=== PATIENT | male | born 1980 | race Caucasian/White ===

== ENCOUNTER 2020-03-03 01:54 | Emergency (ER) | payer BC | END 2020-03-03 06:42 | disposition left against medical advice (07) | LOC: ER 01:54 | DX: Z53.21 Procedure and treatment not carried out due to patient leaving prior to being seen by health care provider (principal) ==

== ENCOUNTER 2020-03-06 03:01 | Inpatient (IN) | payer BC, OTHER ==
--- NOTE | 2020-03-06 04:11 | ER Document Report ---
ED Medical Screen (RME) - General Chief Complaint: Hand Swelling Stated Complaint: RIGHT HAND SWELLING Time Seen by Provider: 03/06/20 03:58 Primary Care Provider: BLAS,DINA [Primary Care Provider] - Follow up as needed Notes: 39-year-old male with chief complaint of right hand pain and swelling at the fourth and fifth digits and across the palm. He states that he struck his palm/hand hard down on a counter approximately 1 week ago, he did started having subsequent swelling and redness to the area which spread across the hand, he was seen at [facility] 3 days ago and started on Bactrim, he does state the red ness and pain has significantly improved but he is starting to get of large blister between the fourth and fifth fingers which has increased in size making him concerned. He denies fever/chills. He denies any open wounds. He denies diabetes. He denies any medical history other than IV drug abuse (reportedly clean for over a year). - Related Data Allergies/Adverse Reactions: No Known Allergies Allergy (Unverified 02/22/11 12:55) Past Medical History - Past Medical History Cardiac Medical History: Reports: Hx Hypertension Denies: Hx Coronary Artery Disease, Hx Heart Attack Pulmonary Medical History: Denies: Hx Asthma, Hx Bronchitis, Hx COPD, Hx Pneumonia Neurological Medical History: Denies: Hx Cerebrovascular Accident, Hx Seizures Musculoskeltal Medical History: Denies Hx Arthritis Past Surgical History: Denies: Hx Pacemaker - Immunizations Hx Diphtheria, Pertussis, Tetanus Vaccination: Yes Physical Exam - Vital signs Vitals: Temp Pulse Resp BP Pulse Ox 98.3 F 70 14 112/68 97 03/06/20 03:13 03/06/20 03:13 03/06/20 03:13 03/06/20 03:13 03/06/20 03:13 - Extremities General upper extremity: Other - Extensive hematoma noted between the webbing and up to the PIP of the right fifth digit and including the base of the fourth digit with swelling onto the hand. Able to move the DIP only of the fifth digit. Surrounding erythema at the base of the hematoma noted of the palm with some swelling. Capillary refill and sensation intact. Wrist exam is unremarkable. Course - Re-evaluation Re-evalutation: I have greeted and performed a rapid initial assessment of this patient. A comprehensive ED assessment and evaluation of the patient, analysis of test results and completion of the medical decision making process will be conducted by additional ED providers. - Vital Signs Vital signs: Temp Pulse Resp BP Pulse Ox 98.3 F 70 14 112/68 97 03/06/20 03:13 03/06/20 03:13 03/06/20 03:13 03/06/20 03:13 03/06/20 03:13 Doctor's Discharge - Discharge Referrals: LOCALMD,NO [Primary Care Provider] - Follow up as needed
[2020-03-06 05:10] LABS: ABSOLUTE LYMPHOCYTES (AUTO) 2.5 10^3/uL (0.5-4.7); ABSOLUTE MONOCYTES (AUTO) 1.2 10^3/uL (0.1-1.4); ABSOLUTE NEUT (AUTO) 9.4 10^3/uL (1.7-8.2); BASOPHILS % (AUTO) 0.3 % (0-2); EOSINOPHILS % (AUTO) 0.4 % (0-6); HEMATOCRIT 38.6 % (37.9-51.0); HEMOGLOBIN 12.9 g/dL (13.5-17.0); LYMPHOCYTES % (AUTO) 18.8 % (13-45); MEAN CORPUSCULAR HEMOGLOBIN 28.7 pg (27.0-33.4); MEAN CORPUSCULAR HGB CONC 33.5 g/dL (32.0-36.0); MEAN CORPUSCULAR VOLUME 86 fl (80-97); MONOCYTES % (AUTO) 9.2 % (3-13); PLATELET COUNT 278 10^3/uL (150-450); RED BLOOD COUNT 4.51 10^6/uL (4.35-5.55); RED CELL DISTRIBUTION WIDTH 13.4 % (11.5-14.0); SEGMENTED NEUTROPHILS % (AUTO) 71.3 % (42-78); TOTAL CELLS COUNTED % (AUTO) 100 %; WHITE BLOOD COUNT 13.2 10^3/uL (4.0-10.5)
[2020-03-06 05:27] LABS: ANION GAP 10 (5-19); BLOOD UREA NITROGEN 19 mg/dL (7-20); CALCIUM 9.4 mg/dL (8.4-10.2); CARBON DIOXIDE 25 mmol/L (22-30); CHLORIDE 104 mmol/L (98-107); GLUCOSE 141 mg/dL (75-110); POTASSIUM 3.7 mmol/L (3.6-5.0)
--- NOTE | 2020-03-06 05:39 | RADIOLOGY REPORT (SQ) ---
EXAM DESCRIPTION: XR HAND 3 OR MORE VIEWS COMPLETED DATE/TME: 03/06/2020 04:46 CLINICAL HISTORY: 39 years, Male, right hand swelling, injury COMPARISON: None. FINDINGS: 3 views of the right hand. No acute fracture or dislocation. Normal osseous mineralization. Dorsal soft tissue edema. No radiopaque foreign body. IMPRESSION: 1. No acute fracture identified. copyright 2010 [employer]- All Rights Reserved
[2020-03-06] MEDS ORDERED: ERTAPENEM SODIUM INJ 1 GM VIAL IV ONE (11:10)
[2020-03-06] MEDS ORDERED: ONDANSETRON HCL INJ/PF 4 MG/2 ML SDV IV ONE (11:10)
[2020-03-06] MEDS ORDERED: MORPHINE SULFATE 10 MG/ML INJ IV ONE (11:10)
[2020-03-06] MEDS ORDERED: NORMAL SALINE 1000 ML 1,000 ML IV ONE (11:32)
--- NOTE | 2020-03-06 11:59 | ER Document Report ---
Entered by JESSICA SARKAR SCRIBE 03/06/20 1016 Acting as scribe for:DANIELLA CABRAL MD ED General - General Chief Complaint: Hand Swelling Stated Complaint: RIGHT HAND SWELLING Time Seen by Provider: 03/06/20 03:58 Mode of Arrival: Ambulatory Information source: Patient Notes: This 39 year old male patient presents to the emergency department today with concerns of right dorsal hand swelling, pain, and discoloration. Patient first noticed swelling to the right dorsal hand at the base of the fifth finger on February 24 and it increased since onset so he went to [facility] on March 01 and he was prescribed ibuprofen, Bactrim, and prednisone. On March 03 he banged his hand on the corner of a counter at work and the swelling, pain, and discoloration has gotten much worse since he hit his hand. He came to the emergency department on the night of February but he left without being seen. His last meal was yesterday. TRAVEL OUTSIDE OF THE [place] IN LAST 30 DAYS: No - Related Data Allergies/Adverse Reactions: No Known Allergies Allergy (Unverified 02/22/11 12:55) Past Medical History - General Information source: Patient - Social History Smoking Status: Current Every Day Smoker Cigarette use (# per day): Yes - 1 PPD Chew tobacco use (# tins/day): No Smoking Education Provided: No Frequency of alcohol use: None Drug Abuse: Other - Former IV drug abuser, states he has been clean for 1 year. 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 Family History: Reviewed & Not Pertinent Past Surgical History: Reports: Hx Inguinal Hernia - Right and left inguinal hernia repair, Hx Umbilical Hernia - Immunizations Hx Diphtheria, Pertussis, Tetanus Vaccination: Yes Review of Systems - Review of Systems Constitutional: No symptoms reported EENT: No symptoms reported Cardiovascular: No symptoms reported Respiratory: No symptoms reported Gastrointestinal: No symptoms reported Genitourinary: No symptoms reported Male Genitourinary: No symptoms reported Musculoskeletal: See HPI, Joint pain Skin: See HPI Hematologic/Lymphatic: No symptoms reported Neurological/Psychological: No symptoms reported -: Yes All other systems reviewed and negative Physical Exam - Vital signs Vitals: Temp Pulse Resp BP Pulse Ox 98.3 F 70 14 112/68 97 03/06/20 03:13 03/06/20 03:13 03/06/20 03:13 03/06/20 03:13 03/06/20 03:13 - Notes Notes: Physical Exam: General: Alert, appears well. HEENT: Normocephalic. Atraumatic. PERRL. Extraocular movements intact. Oropharynx clear. Neck: Supple. Non-tender. Respiratory: No respiratory distress. Clear and equal breath sounds bilaterally. Cardiovascular: Regular rate and rhythm. Abdominal: Normal Inspection. Non-tender. No distension. Normal Bowel Sounds. Back: No gross abnormalities. Extremities: Moves all four extremities. Upper extremities: Patient is fully closed, including a heavy coat. Due to the amount of pus that came out of his hand, we just kept the sleeve pulled up during the procedure. He was undressed later while the hand was bandaged to prevent contamination of his clothing. Dr. Choe did note what he thought were track gary in the antecubital fossa region. Lower extremities: Patient is fully clothed at this time, he has no difficulty ambulating. Neurological: Normal cognition. AAOx4. Normal speech. Psychological: Normal affect. Normal Mood. - Extremities General upper extremity: Other - Right hand has a dark bluish colored blister over the dorsal fifth MCP joint region. It extends down close to the PIP joint, and extends proximally about 1 cm. It extends in the radial direction almost to the fourth MCP joint region. There is erythema swelling and tenderness at the radial leading edge of the blister region. Blister also extends around the ulnar aspect of the fifth finger at the MCP joint region. Course - Re-evaluation Re-evalutation: 03/06/20 11:26 PROCEDURE: The right hand skin was initially cleaned with alcohol wipes and the blister was punctured with an 18-gauge needle. Reddish-brown pus sprayed out of the punctured area almost 3 feet across the room. A suture kit was requested and used to debride the skin from the dorsal aspect of the hand. Several mL of pus ran out of the wound area onto the surgical towel. Gentle pressure was applied which showed pus coming out of the dorsal finger at the MCP joint region, and the extensor tendon was visible. The pus was sent to the lab for culture and Gram stain. The wound was irrigated with normal saline, and a saline soaked dressing was applied. Dr. Choe the orthopedic surgeon on-call was notified and he will come by and see the patient. - Vital Signs Vital signs: Temp Pulse Resp BP Pulse Ox 98.2 F 74 14 120/69 100 03/06/20 13:55 03/06/20 13:55 03/06/20 13:55 03/06/20 13:55 03/06/20 13:55 - Laboratory Result Diagrams: 03/06/20 04:54 03/06/20 04:54 Laboratory results interpreted by me: 03/06/20 03/06/20 04:54 04:54 WBC 13.2 H Hgb 12.9 L Absolute Neuts (auto) 9.4 H Glucose 141 H - Diagnostic Test Radiology reviewed: Image reviewed, Reports reviewed - X-ray of the right hand is unremarkable - Consults Dr. Choe Time consulted: 11:11 Consulted provider: will come to ER Discharge - Discharge Clinical Impression: Abscess of hand including fingers Qualifiers: Laterality: right Qualified Code(s): L02.511 - Cutaneous abscess of right hand Condition: Stable Disposition: ADMITTED INPATIENT Admitting Provider: Dr. Choe Unit Admitted: OR I personally performed the services described in the documentation, reviewed and edited the documentation which was dictated to the scribe in my presence, and it accurately records my words and actions.
[2020-03-06] MEDS ORDERED: FENTANYL CITRATE INJ/PF 100 MCG/2 ML AMPUL ONE ×2 (12:46→13:22)
[2020-03-06] MEDS ORDERED: MIDAZOLAM 2 MG/2 ML INJ ONE ×2 (12:46→13:23)
[2020-03-06] MEDS ORDERED: PROPOFOL INJ 200 MG/20 ML VIAL IV ONE ×2 (12:46→13:23)
[2020-03-06] MEDS ORDERED: LIDOCAINE 1%/EPINEPHRINE INJ 20 ML VIAL ONE (13:07)
[2020-03-06] MEDS ORDERED: BUPIVACAINE HCL 0.5 % INJ/PF 30 ML SDV ONE (13:07)
[2020-03-06] MEDS ORDERED: DEXAMETHASONE SOD PHOSPHATE INJ 4 MG/1 ML VIAL ONE (13:23)
[2020-03-06] MEDS ORDERED: ONDANSETRON HCL INJ/PF 4 MG/2 ML SDV ONE (13:23)
[2020-03-06] MEDS ORDERED: KETAMINE HCL INJ 500 MG/10 ML VIAL ONE (13:28)
[2020-03-06] MEDS ORDERED: PROMETHAZINE HCL INJ 25 MG/1 ML VIAL IV PRN ×2 (14:07)
[2020-03-06] MEDS ORDERED: MEPERIDINE HCL/PF INJ 25 MG/1 ML DISP.SYRIN IV PRN (14:07)
[2020-03-06] MEDS ORDERED: FENTANYL CITRATE INJ/PF 100 MCG/2 ML AMPUL IV PRN ×3 (14:07)
[2020-03-06] MEDS ORDERED: DIPHENHYDRAMINE HCL 50 MG/ML VIAL IV PRN (14:07)
[2020-03-06] MEDS ORDERED: MAG HYDROX/AL HYDROX/SIMETH SUSP 30 ML UDCUP PO PRN (15:18)
[2020-03-06] MEDS ORDERED: ACETAMINOPHEN 325 MG TABLET PO PRN (15:18)
[2020-03-06] MEDS ORDERED: ONDANSETRON 4 MG TAB.RAPDIS PO PRN (15:18)
[2020-03-06] MEDS ORDERED: MORPHINE SULFATE 10 MG/ML INJ ONE (15:21)
[2020-03-06] MEDS: MORPHINE SULFATE 10 MG/ML INJ IV PRN ×2 (15:23→15:29)
--- NOTE | 2020-03-06 15:30 | PDOC H&P ---
History of Present Illness Admission Date/PCP: 03/06/20 12:33 IN CLINIC History of Present Illness: MELY LITTLEJOHN is a 39 year old male who presents to the emergency department with dorsal right hand swelling, pain, discoloration that has been progressive over the last week. Patient reports that he went to [facility] on March 01 and was prescribed a combination of high-dose ibuprofen, Bactrim, as well as prednisone and ultimately he continued to progress with worse pain and swelling since that time. He is not aware of any inciting event such as a puncture wound or associated abrasion. He feels that this came out of nowhere but ultimately became much worse on March 03 when he banged his hand on the counter at work with considerable pain discoloration and swelling. He has had some malaise in the meantime with mild fever symptoms. He denies numbness to the fingertip. He denies injecting IV drugs in the hand. He does have track gray in his antecubital fossa though he reports to me today that he has been off of all IV drugs for a year. Pain is described as burning aching pressure/8 out of 10, worse with any activity, improved with rest and pain medication, nonradiating. Past Medical History Cardiac Medical History: Reports: Hypertension Denies: Coronary Artery Disease, Myocardial Infarction Pulmonary Medical History: Denies: Asthma, Bronchitis, Chronic Obstructive Pulmonary Disease (COPD), Pneumonia Neurological Medical History: Denies: Seizures Musculoskeltal Medical History: Denies: Arthritis Hematology: Denies: Anemia Past Surgical History Past Surgical History: Denies: Pacemaker Social History Smoking Status: Current Every Day Smoker - Advance Directive Resuscitation Status: Full Code Family History Family History: Reviewed & Not Pertinent Parental Family History Reviewed: No Children Family History Reviewed: NA Sibling(s) Family History Reviewed.: NA Medication/Allergy Home Medications: Chantix PO BID 02/22/11 Lisinopril 10 mg PO DAILY 02/22/11 Simvastatin 40 mg PO DAILY 02/22/11 Lovaza 1 gm Capsule 2 tab PO BID 02/28/11 Percocet 5-325 mg Tablet 1 tab PO Q4HP PRN 02/28/11 Phenergan 25 mg Tablet 1 tab PO Q4HP PRN 02/28/11 Allergies/Adverse Reactions: No Known Allergies Allergy (Unverified 02/22/11 12:55) Review of Systems Review of Systems: Constitutional: ABSENT: anorexia, chills, night sweats Cardiovascular: ABSENT: chest pain Respiratory: ABSENT: dyspnea Gastrointestinal: ABSENT: vomiting Genitourinary: ABSENT: dysuria Integumentary: ABSENT: rash Neurological: ABSENT: confusion, memory loss, numbness Psychiatric: ABSENT: hallucinations Hematologic/Lymphatic: ABSENT: easy bleeding Physical Exam Vital Signs: Temp Pulse Resp BP Pulse Ox 98.2 F 74 14 120/69 100 03/06/20 13:55 03/06/20 13:55 03/06/20 13:55 03/06/20 13:55 03/06/20 13:55 Intake & Output 03/05/20 03/06/20 03/07/20 06:59 06:59 06:59 Intake Total 1600 Output Total 5 Balance 1595 Weight 85.4 kg Physical Exam: General appearance: PRESENT: no acute distress, cooperative, well-nourished Head exam: PRESENT: atraumatic, normocephalic Eye exam: PRESENT: EOMI Ear exam: PRESENT: normal external ear exam Mouth exam: PRESENT: neck supple Neck exam: ABSENT: tracheal deviation Respiratory exam: PRESENT: symmetrical, unlabored. ABSENT: accessory muscle use, wheezes Pulses: PRESENT: normal radial pulses, normal dorsalis pedis pulse Vascular exam: PRESENT: normal capillary refill GI/Abdominal exam: ABSENT: distended, firm Extremities exam: PRESENT: full ROM of bilateral shoulders, elbows wrists, knees, hips and ankles without pain Musculoskeletal exam: PRESENT: full ROM, normal inspection of all 4 extremities aside from that noted below. Neurological exam: PRESENT: alert, awake, oriented to person, oriented to place, oriented to time Psychiatric exam: PRESENT: appropriate affect. ABSENT: agitated Focused psych exam: ABSENT: catatonic Skin exam: PRESENT: intact. ABSENT: dry All as above aside from that noted in the HPI and the following: Right upper extremity sensation grossly intact to radial median and ulnar nerve. upper extremity motor function grossly intact to radian median ulnar nerve AIN and PIN Pulses 2+, capillary refill less than 2 seconds substantial swelling over the fifth MCP of the right hand with swelling both dorsally and volarly. The patient has intact sensation to the fingertip and capillary refill less than 2 seconds. There is a volar wound that is ultimately skin attenuation after long-term pressure from the abscess at the level of the MCP crease with a large opening approximately 2 cm. This goes into the crease between the fourth and fifth digit. There is visible flexor tendon. Gross purulence is appreciated. Results Laboratory Results: 03/06/20 04:54 03/06/20 04:54 03/06/20 03/06/20 04:54 04:54 WBC 13.2 H RBC 4.51 Hgb 12.9 L Hct 38.6 MCV 86 MCH 28.7 MCHC 33.5 RDW 13.4 Plt Count 278 Seg Neutrophils % 71.3 Sodium 138.8 Potassium 3.7 Chloride 104 Carbon Dioxide 25 Anion Gap 10 BUN 19 Creatinine 0.73 Est GFR ( Amer) > 60 Glucose 141 H Calcium 9.4 Impressions: Hand X-Ray 03/06/20 04:10 IMPRESSION: 1. No acute fracture identified. copyright 2010 [employer]- All Rights Reserved Assessment & Plan - Diagnosis (1) Abscess of hand including fingers Qualifiers: Laterality: right Qualified Code(s): L02.511 - Cutaneous abscess of right hand Is this a current diagnosis for this admission?: Yes Plan: The patient was seen in the emergency department evaluated and determined to need acute washout Will consult infectious disease for ongoing antibiotic treatment We will perform a washout in the OR followed by wound care Dilute Dakin soaks twice daily, 20 minutes at a time Follow cultures (2) IV drug abuse Is this a current diagnosis for this admission?: Yes Plan: Case management has been consulted Though the patient denies any recent use he does appear to have track gray in his right antecubital fossa. - Time Anticipated Discharge Disposition: Home, Self Care Anticipated Discharge Timeframe: within 72 hours
--- NOTE | 2020-03-06 15:35 | Operative Report ---
Operative Report DATE OF SURGERY: 03/06/20 PREOPERATIVE DIAGNOSIS: Right hand abscess POSTOPERATIVE DIAGNOSIS: Right hand abscess OPERATION: Right hand abscess incision and debridement SURGEON: LIZY BELL JR ANESTHESIA: Moderate Sedation TISSUE REMOVED OR ALTERED: Cultures taken COMPLICATIONS: None ESTIMATED BLOOD LOSS: 50 cc PROCEDURE: The patient was brought to the operating suite and laid supine on the operating table he was placed under moderate sedation. The right upper extremities and prepped draped in standard sterile fashion. He had just received antibiotics in the emergency department preoperatively. An appropriate timeout was performed. The tissue about the wound was anesthetized with local anesthetic. The tourniquet was inflated to 250 mmHg. After appropriate anesthesia an incision was made to extend the wound along the ulnar border of the hand. Culture swabs were used and sent to microbiology. I then explored the contents of the wound and gently removed any necrotic or infectious appearing tissue. I explored the boundaries of the wound for any potential pockets of purulence and attempted to express any purulence possible. After thorough evaluation and removal of any nonviable tissue, we copiously irrigated the wound with dilute Betadine solution. The abscess had ultimately formed a subcutaneous blister volarly at the level of the MCP joint and much of the tissue at the crease of the MCP was necrotic and once removed there was approximately a 2 cm x 1 cm void. I was able to approximate this with 3-0 nylon. A portion of the wound was left partially open in between the fourth and fifth digit. Sterile dressing was then placed. The tourniquet was deflated. The patient was then awakened from anesthesia and transferred to PACU in stable condition.
[2020-03-06 16:45] LABS: ABSOLUTE MONOCYTES (AUTO) 0.2 10^3/uL (0.1-1.4); ABSOLUTE NEUT (AUTO) 7.6 10^3/uL (1.7-8.2); HEMATOCRIT 36.9 % (37.9-51.0); HEMOGLOBIN 12.5 g/dL (13.5-17.0); LYMPHOCYTES % (AUTO) 11.4 % (13-45); MEAN CORPUSCULAR HEMOGLOBIN 29.5 pg (27.0-33.4); MEAN CORPUSCULAR HGB CONC 33.9 g/dL (32.0-36.0); MEAN CORPUSCULAR VOLUME 87 fl (80-97); MONOCYTES % (AUTO) 2.7 % (3-13); PLATELET COUNT 244 10^3/uL (150-450); RED BLOOD COUNT 4.25 10^6/uL (4.35-5.55); RED CELL DISTRIBUTION WIDTH 13.8 % (11.5-14.0); SEGMENTED NEUTROPHILS % (AUTO) 85.9 % (42-78); TOTAL CELLS COUNTED % (AUTO) 100 %; WHITE BLOOD COUNT 8.9 10^3/uL (4.0-10.5)
[2020-03-06 17:01] LABS: ANION GAP 7 (5-19); BLOOD UREA NITROGEN 15 mg/dL (7-20); CALCIUM 8.8 mg/dL (8.4-10.2); CARBON DIOXIDE 24 mmol/L (22-30); CHLORIDE 107 mmol/L (98-107); GLUCOSE 124 mg/dL (75-110); POTASSIUM 4.6 mmol/L (3.6-5.0)
[2020-03-06] MEDS ORDERED: SODIUM HYPOCHLORITE 0.25% SOLN 473 ML BOTTLE TP SCH (18:00)
[2020-03-06] MEDS: OXYCODONE-ACETAMINOPHEN 5-325 MG TABLET PO PRN (20:25)
[2020-03-07] MEDS: OXYCODONE-ACETAMINOPHEN 5-325 MG TABLET PO PRN ×3 (01:08→20:34)
[2020-03-07] MEDS: PANTOPRAZOLE SODIUM 20 MG TABLET.DR PO SCH (05:40)
[2020-03-07] MEDS ORDERED: INFLUENZA QUAD (6MOS+) 2020-21 VAC 0.5 ML SYR IM ONE (08:00)
--- NOTE | 2020-03-07 08:39 | PDOC PROGRESS REPORT ---
Subjective Date:: 03/07/20 Subjective:: Patient seen and examined this morning, no acute events overnight, no worsening symptoms, pain well controlled. Reason For Visit: RIGHT HAND ABSCESS Physical Exam Vital Signs: Temp Pulse Resp BP Pulse Ox 98.4 F 78 18 111/68 100 03/07/20 04:20 03/07/20 04:20 03/07/20 04:20 03/07/20 04:20 03/07/20 04:20 Intake & Output 03/06/20 03/07/20 03/08/20 06:59 06:59 06:59 Intake Total 2049 Output Total Balance 2044 Weight 85.4 kg 90.4 kg Physical Exam: No acute distress, alert and orient x3 Right upper extremity sensation grossly intact to radial median and ulnar nerve. upper extremity motor function grossly intact to radian median ulnar nerve AIN and PIN Pulses 2+, capillary refill less than 2 seconds Compartments soft, no tenderness to palpation Dressing with mild to moderate serous drainage Sensation intact to the fingertip Results Laboratory Results: 03/06/20 16:36 03/06/20 16:36 03/06/20 03/06/20 16:36 16:36 WBC 8.9 RBC 4.25 L Hgb 12.5 L Hct 36.9 L MCV 87 MCH 29.5 MCHC 33.9 RDW 13.8 Plt Count 244 Seg Neutrophils % 85.9 H Sodium 137.9 Potassium 4.6 Chloride 107 Carbon Dioxide 24 Anion Gap 7 BUN 15 Creatinine 0.64 Est GFR ( Amer) > 60 Glucose 124 H Calcium 8.8 Impressions: Hand X-Ray 03/06/20 04:10 IMPRESSION: 1. No acute fracture identified. copyright 2010 [employer]- All Rights Reserved Assessment & Plan - Diagnosis (1) Abscess of hand including fingers Qualifiers: Laterality: right Qualified Code(s): L02.511 - Cutaneous abscess of right hand Is this a current diagnosis for this admission?: Yes Plan: Currently on Ancef, infectious disease consult pending Follow cultures Twice daily Dakin soaks, 20 minutes at a time Twice daily dressing changes Patient may potentially be discharged tomorrow on p.o. medication pending microbiology and infectious disease recommendations. Nonweightbearing right upper extremity. (2) IV drug abuse Is this a current diagnosis for this admission?: Yes - Time Time Spent with patient: Less than 15 minutes
[2020-03-07] MEDS: CEFAZOLIN SODIUM 2 GM in DEXTROSE 5%-WATER 100 ML IV SCH ×2 (10:56→17:38)
[2020-03-07] MEDS: DOCUSATE SODIUM 100 MG CAPSULE PO SCH (10:56)
[2020-03-07] MEDS: SODIUM HYPOCHLORITE 0.25% SOLN 473 ML BOTTLE TP SCH ×2 (11:59→17:37)
[2020-03-07] MEDS: MORPHINE SULFATE 10 MG/ML INJ IV PRN (12:45)
[2020-03-07] MEDS ORDERED: CEFAZOLIN 2 GM/D5W RTU 2 GM/50 ML RTUPB IV SCH (14:00)
[2020-03-08] MEDS: CEFAZOLIN SODIUM 2 GM in DEXTROSE 5%-WATER 100 ML IV SCH ×2 (02:55→09:10)
[2020-03-08] MEDS: PANTOPRAZOLE SODIUM 20 MG TABLET.DR PO SCH (05:25)
[2020-03-08] MEDS ORDERED: SODIUM HYPOCHLORITE 0.25% SOLN 473 ML BOTTLE TP SCH (06:00)
--- NOTE | 2020-03-08 07:35 | PDOC PROGRESS REPORT ---
Subjective Date:: 03/08/20 Subjective:: Patient doing well this morning. Hopeful for discharge home. Reports some burn ing in the finger but otherwise no progressive pain at this time. Reason For Visit: RIGHT HAND ABSCESS Physical Exam Vital Signs: Temp Pulse Resp BP Pulse Ox 98.3 F 57 L 18 108/71 100 03/08/20 00:09 03/08/20 00:09 03/08/20 00:09 03/08/20 00:09 03/08/20 00:09 Intake & Output 03/07/20 03/08/20 03/09/20 06:59 06:59 06:59 Intake Total 2049 370 Output Total Balance 2044 370 Weight 90.4 kg 84.7 kg Physical Exam: No acute distress, alert and orient x3 Right upper extremity exam Upper extremity sensation grossly intact to radial median and ulnar nerve. upper extremity motor function grossly intact to radian median ulnar nerve AIN and PIN Pulses 2+, capillary refill less than 2 seconds Dressing clean dry and intact Sensation intact to the fifth digit fingertip with mild paresthesia. Results Laboratory Results: 03/06/20 16:36 03/06/20 16:36 Impressions: Hand X-Ray 03/06/20 04:10 IMPRESSION: 1. No acute fracture identified. copyright 2011 [employer]- All Rights Reserved Assessment & Plan - Diagnosis (1) Abscess of hand including fingers Qualifiers: Laterality: right Qualified Code(s): L02.511 - Cutaneous abscess of right hand Is this a current diagnosis for this admission?: Yes Plan: Infectious disease consult pending Cultures pending Potential discharge home today given sensitivities and infectious disease recommendations Continue twice daily Dakin soaks and dressing changes until discharge (2) IV drug abuse Is this a current diagnosis for this admission?: Yes - Time Time Spent with patient: Less than 15 minutes
[2020-03-08] MEDS: MORPHINE SULFATE 10 MG/ML INJ IV PRN ×2 (07:54→16:04)
--- NOTE | 2020-03-08 09:15 | Progress Note ---
Provider Note Provider Note: [facility] ID teleconsultation. Patient not examined. Chart reviewed. Patient is a 39-year-old male with a history significant for injection drug use who was admitted with a right hand abscess in between the fourth and fifth digit and extending to the right fifth MCP. He was taken to the OR 03/06 for debridement. There is no mention of septic joint explicitly. All cultures are no growth to date so far with GPC's on the Gram stain. It should be noted that patient initially presented on 03/01 to another facility and was prescribed Bactrim. He has been afebrile and his WBC on admission was 13 and is now normal. He is anxious for discharge home. Assessment/Recommendations: Right hand abscess around the fourth and fifth fingers in a patient with a history of injection drug use. Status post I&D with no growth to date on cultures but with preceding Bactrim use. Most likely MRSA or MSSA. He has been afebrile and blood cultures were never obtained. The duration of antibiotic therapy will depend largely on whether or not there is a clinical suspicion of septic arthritis of the right fifth MCP joint. -If concern for septic arthritis recommend 4 weeks of Bactrim 2 DS p.o. twice daily -If no concern for septic arthritis recommend 10 days of Bactrim 2 DS p.o. twice daily -Should operative cultures result with an organism please call back for additional recommendations
[2020-03-08] MEDS: DOCUSATE SODIUM 100 MG CAPSULE PO SCH (10:43)
--- NOTE | 2020-03-08 14:31 | PDOC DISCHARGE SUMMARY ---
Impression - Admit/DC Date/PCP Admission Date/Primary Care Provider: 03/06/20 12:[facility] Discharge Date: 03/08/20 - Discharge Diagnosis (1) Abscess of hand including fingers Is this a current diagnosis for this admission?: Yes (2) IV drug abuse Is this a current diagnosis for this admission?: Yes - Additional Information Resuscitation Status: Full Code Discharge Diet: As Tolerated Discharge Activity: No Lifting Over 10 Pounds Referrals: LOCALMD,NO [NO LOCAL MD] - Follow up as needed Prescriptions: Amoxicillin/Potassium Clav [Augmentin 875-125 Tablet] 1 tab PO Q12 10 Days #20 tablet Home Medications: Ibuprofen [Motrin 800 mg Tablet] 800 mg PO QIDP PRN MDD FILLED 03/03 FOR 10 DAY SUPPLY 03/06/20 Acetaminophen [Tylenol 325 mg Tablet] 650 mg PO Q4HP PRN tablet 03/08/20 Amoxicillin/Potassium Clav [Augmentin 875-125 Tablet] 1 tab PO Q12 10 Days #20 tablet 03/08/20 History of Present Illiness History of Present Illness: MELY LITTLEJOHN is a 39 year old male who presents to the emergency department with dorsal right hand swelling, pain, discoloration that has been progressive over the last week. Patient reports that he went to [facility] on March 01 and was prescribed a combination of high-dose ibuprofen, Bactrim, as well as prednisone and ultimately he continued to progress with worse pain and swelling since that time. He is not aware of any inciting event such as a puncture wound or associated abrasion. He feels that this came out of nowhere but ultimately became much worse on March 03 when he banged his hand on the counter at work with considerable pain discoloration and swelling. He has had some malaise in the meantime with mild fever symptoms. He denies numbness to the fingertip. He denies injecting IV drugs in the hand. He does have track gray in his antecubital fossa though he reports to me today that he has been off of all IV drugs for a year. Pain is described as burning aching pressure/8 out of 10, worse with any activity, improved with rest and pain medication, nonradiating. Hospital Course Hospital Course: The patient was admitted on 03 06 2020 for a right hand abscess. Was taken to the operating room on 03/06/2020 for formal I&D of the right hand. The abscess was deep and included deep structures including his flexor tendon however did not appear to include the joint of the fifth M CP. The wound was washed out, cultures were taken, it was thoroughly irrigated and then partially closed. After surgery the patient was admitted for postoperative antibiotics, medical management, infectious disease consultation, and postoperative monitoring. Infectious disease recommendations were provided on 03/08/2020 upon cultures growing gram-positive cocci in chains. I discussed the antibiotic course directly with the infectious disease doctor and the patient was discharged home on 10 days of Augmentin. I will continue to follow cultures for further identification and sensitivities. If there is any changes I will make a change to his postoperative course. Patient is stable for discharge home today given his wound has improved over the course of the last 2 days. He is to return to my office with any acute changes or worsening symptoms. Physical Exam Vital Signs: Temp Pulse Resp BP Pulse Ox 98.4 F 70 16 124/84 99 03/08/20 11:44 03/08/20 11:44 03/08/20 11:44 03/08/20 11:44 03/08/20 11:44 Intake & Output 03/07/20 03/08/20 03/09/20 06:59 06:59 06:59 Intake Total 2049 370 Output Total Balance 2044 370 Weight 90.4 kg 84.7 kg Results Laboratory Results: WBC 8.9 10^3/uL (4.0-10.5) 03/06/20 16:36 RBC 4.25 10^6/uL (4.35-5.55) L 03/06/20 16:36 Hgb 12.5 g/dL (13.5-17.0) L 03/06/20 16:36 Hct 36.9 % (37.9-51.0) L 03/06/20 16:36 MCV 87 fl (80-97) 03/06/20 16:36 MCH 29.5 pg (27.0-33.4) 03/06/20 16:36 MCHC 33.9 g/dL (32.0-36.0) 03/06/20 16:36 RDW 13.8 % (11.5-14.0) 03/06/20 16:36 Plt Count 244 10^3/uL (150-450) 03/06/20 16:36 Lymph % (Auto) 11.4 % (13-45) L 03/06/20 16:36 [place] % (Auto) 2.7 % (3-13) L 03/06/20 16:36 Eos % (Auto) 0.0 % (0-6) 03/06/20 16:36 Baso % (Auto) 0.0 % (0-2) 03/06/20 16:36 Absolute Neuts (auto) 7.6 10^3/uL (1.7-8.2) 03/06/20 16:36 Absolute Lymphs (auto) 1.0 10^3/uL (0.5-4.7) 03/06/20 16:36 Absolute Monos (auto) 0.2 10^3/uL (0.1-1.4) 03/06/20 16:36 Absolute Eos (auto) 0.0 10^3/uL (0.0-0.6) 03/06/20 16:36 Absolute Basos (auto) 0.0 10^3/uL (0.0-0.2) 03/06/20 16:36 Seg Neutrophils % 85.9 % (42-78) H 03/06/20 16:36 Sodium 137.9 mmol/L (137-145) 03/06/20 16:36 Potassium 4.6 mmol/L (3.6-5.0) 03/06/20 16:36 Chloride 107 mmol/L (98-107) 03/06/20 16:36 Carbon Dioxide 24 mmol/L (22-30) 03/06/20 16:36 Anion Gap 7 (5-19) 03/06/20 16:36 BUN 15 mg/dL (7-20) 03/06/20 16:36 Creatinine 0.64 mg/dL (0.52-1.25) 03/06/20 16:36 Est GFR ( Amer) > 60 (>60) 03/06/20 16:36 Est GFR (MDRD) Non-Af > 60 (>60) 03/06/20 16:36 Glucose 124 mg/dL (75-110) H 03/06/20 16:36 Calcium 8.8 mg/dL (8.4-10.2) 03/06/20 16:36 SARS-CoV-2 (PCR) NEGATIVE (NEGATIVE) 03/06/20 12:25 Impressions: Hand X-Ray 03/06/20 04:10 IMPRESSION: 1. No acute fracture identified. copyright 2011 [employer]- All Rights Reserved Stroke Is this a Stroke Patient?: No Acute Heart Failure Is this a Heart Failure Patient?: No
[2020-03-08] MEDS ORDERED: NICOTINE 21 MG/24 HR PATCH.TD24 TD SCH (16:00)
[2020-03-08 17:51] VITALS: BP 120/69
[2020-03-08] MEDS: OXYCODONE-ACETAMINOPHEN 5-325 MG TABLET PO PRN (18:09)
[2020-03-08] MEDS ORDERED: AMOXICILLIN TR/POT CLAVULANATE 875-125 MG TAB PO SCH (22:00)
--- NOTE | 2020-03-10 09:02 | Progress Note ---
Provider Note Provider Note: [facility] Brief Note Patient admitted to the hospital due to right hand abscess. He is s/p I&D. He was partially treated with Bactrim DS. Cultures positive for Streptococcus anginosus, Peptostreptococcus and Prevotella. Patient was sent home on augmentin. I was called by pharmacist for antimicrobial stewardship. Augmentin is adequate to treat the infection caused by these organisms. Duration of therapy depends on clinical response. He had good source control, 10 days is a reasonable recommendation with follow up for further evaluation if infection not resolved by then. Dr. Choe notified. Please call back if any questions. Rhianna Miller MD [facility] [id number]
== END 2020-03-08 18:20 | disposition home or self-care (01) | DRG 581 ==
LOC: ER 03:01 → EH 12:33 → 4N 16:12
PROVIDERS: ADMIT Orthopaedic Surgery; ATTEND Orthopaedic Surgery
PROC: 0J9J3ZX Drainage of Right Hand Subcutaneous Tissue and Fascia, Percutaneous Approach, Diagnostic (ICD-10-PCS; 2020-03-06)
PROC: 0JBJ0ZZ Excision of Right Hand Subcutaneous Tissue and Fascia, Open Approach (ICD-10-PCS; principal; 2020-03-06 14:00)
DX: L02.511 Cutaneous abscess of right hand (principal); B95.4 Other streptococcus as the cause of diseases classified elsewhere; B96.89 Other specified bacterial agents as the cause of diseases classified elsewhere; F19.10 Other psychoactive substance abuse, uncomplicated; Z20.828 Contact with and (suspected) exposure to other viral communicable diseases; I10 Essential (primary) hypertension; F17.200 Nicotine dependence, unspecified, uncomplicated
CPT/HCPCS: 00400; 36415; 80048; 85025; 87070; 87075; 87077; 87205; 87635; 99140; C9803; J0690; J1100; J1335; J2250; J2270; J2405; J2704; J3010; J3490; J7030; J7060